=== PATIENT | female | born 1945 | race Caucasian/White ===

== ENCOUNTER 2019-03-11 10:40 | Inpatient (IN) | payer MEDICAID, MEDICARE ==
[~2019-03-11] VITALS: Ht 167.6 cm; Wt 81.2 kg
[2019-03-11] MEDS ORDERED: LORazepam 1 MG TAB PO ONE (11:00)
--- NOTE | 2019-03-11 11:08 | ER Report ---
History and Physical Time Seen By MD: 10:40 Hx. of Stated Complaint: fall around 0915 HPI/ROS CHIEF COMPLAINT: Reported fall HISTORY OF PRESENT ILLNESS: Patient is a 73-year-old female significant progressive and advanced dementia was found on the floor unwitnessed fall complaining of neck pain patient is a very poor historian cannot give any additional history the history was obtained by the staff. On arrival to emergency department she says her neck surgery 1 minute but then the next minute he doesn't she is currently in C-spine precautions. Patient is denying any pain anywhere else no obvious signs of trauma no additional findings noted REVIEW OF SYSTEMS: Couldn't appreciate due to baseline mental status Respiratory: No cough, no dyspnea. Cardiovascular: No chest pain, no palpitations. Gastrointestinal: No vomiting, no abdominal pain. Musculoskeletal: Neck pain Remainder of the 14 system rev: Yes Allergies: Coded Allergies: Penicillins (Verified Allergy, Unknown, 03/11/19) rofecoxib (Verified Allergy, Unknown, 03/11/19) Home Meds Reported Medications Nystatin 100,000 Unit/Gm Top Powder (NYSTATIN 100,000 UNIT/GM TOP POWDER) 15 Gm Powder, 15 GM TP PRN, TUBE 03/11/19 Lisinopril (LISINOPRIL) 20 Mg Tablet, 20 MG PO QDAY, TAB 03/11/19 Levothyroxine Sodium (LEVOTHYROXINE SODIUM) 50 Mcg Tablet, 25 MCG PO QDAY, TAB 03/11/19 Cyanocobalamin (Vitamin B-12) (CYANOCOBALAMIN INJECTION) 1,000 Mcg/1 Ml Vial, 1000 MCG IM 1x month, VIAL 03/11/19 Acetaminophen (TYLENOL EXTRA STRENGTH) 500 Mg Tablet, 500 MG PO DAILY, TAB 03/11/19 Reviewed Nurses Notes: Yes Old Medical Records Reviewed: Yes Constitutional Vital Sign - Last 24 Hours 03/11/19 10:55 Temp 97.6 Pulse 104 Resp 16 B/P (MAP) 167/91 Pulse Ox 98 O2 Delivery Room Air Physical Exam General Appearance: Patient at baseline altered mental alert to person only difficult to get any history[ ] Eyes: Pupils equal and round no injection. Respiratory: Chest is non tender, lungs are clear to auscultation. Cardiac: regular rate and rhythm [ ] Gastrointestinal: Abdomen is soft and non tender, no masses, bowel sounds normal. Musculoskeletal: Unremarkable Neck is in C-spine she's denying pain at time of examination Extremities have full range of motion and are non tender. Skin: No rashes or lesions. [ ] DIFFERENTIAL DIAGNOSIS: After history and physical exam differential diagnosis was considered for C-spine fracture C-spine contusion intracranial bleed mass fall on the elderly rhabdo Medical Decision Making Data Points Laboratory Hematology Test 03/11/19 11:40 Prothrombin Time 13.7 seconds (12.0-14.4) Prothromb Time International Ratio 1.04 Activated Partial Thromboplast Time 31 seconds (23-35) Chemistry Test 03/11/19 11:40 Prothrombin Time 13.7 seconds (12.0-14.4) Prothromb Time International Ratio 1.04 Activated Partial Thromboplast Time 31 seconds (23-35) Coagulation Test 03/11/19 11:40 Prothrombin Time 13.7 seconds Prothromb Time International Ratio 1.04 Activated Partial Thromboplast Time 31 seconds ED Course/Re-evaluation ED Course ED course 73-year-old female significant dementia at a mechanical unwitnessed fall CT scan does confirm a 2-3 mm subdural hematoma will be admitted to a general surgeon C-spine is negative coags negative no obvious anticoagulation issues patient be admitted Decision to Disposition Date: Mar 11, 2019 Decision to Disposition Time: 12:16 Depart Departure Latest Vital Signs Vital Signs Date Time Temp Pulse Resp B/P (MAP) Pulse Ox O2 Delivery O2 Flow Rate FiO2 03/11/19 10:55 97.6 104 16 167/91 98 Room Air Impression: Primary Impression: Subdural hematoma Condition: Condition Unchanged Disposition: Admitted from ER SOLIS RASHEED MD Mar 11, 2019 11:08
[2019-03-11] MEDS ORDERED: ACET500T68 PO (11:33)
[2019-03-11] MEDS ORDERED: NYST15PO4 TP (11:33)
[2019-03-11] MEDS ORDERED: CYAN1000 IM (11:33)
[2019-03-11] MEDS ORDERED: LEVO50TA86 PO (11:33)
[2019-03-11] MEDS ORDERED: LISI20TA29 PO (11:33)
--- NOTE | 2019-03-11 11:41 | RADIOLOGY IMAGING REPORT ---
FAC[place] [facility] [place]IENT NAME: Jojo Hooper : 1945 MR: [id number] V: [id number] EXAM DATE: ORDERING PHYSICIAN: SOLIS RASHEED TECHNOLOGIST: Location: [facility] - [place] Patient: Jojo Hooper : 1945 Visit/Account:[id number] Date of Sevice: 03/11/[address] scan without contrast COMPARISONS: None ADDITIONAL PERTINENT HISTORY: Fall TECHNIQUE: Multiple axial images were obtained from the skull base to the vertex without IV contrast . One of the following dose optimization techniques was utilized in the performance of this exam: Aut omated exposure control; adjustment of the mA and/or kV according to the patient's size; or use of an iterative reconstruction technique. Specific details can be referenced in the facility's radiology CT exam operational policy. FINDINGS: Midline shift: Negative Ventricles: Moderate enlargement of the lateral and third ventricles. Otherwise negative Brain parenchyma: Patchy hypoattenuation within the periventricular and subcortical white matter, no nspecific but likely representing small vessel ischemic change on a chronic basis. No intraparenchyma l hemorrhage or mass effect. Extra-axial spaces: Moderate to severe cerebral atrophy. Findings concerning for a thin subdural hem atoma measuring 2 to 3 mm overlying the midportion of the left cerebral hemisphere. No significant ma ss effect related to this thin subdural hematoma. Intracranial vasculature: Cavernous internal carotid artery calcifications. Otherwise negative Osseous structures: Negative Paranasal sinuses and mastoid air cells: Severe mucosal thickening involving the left maxillary sinu s. Surrounding soft tissues and orbits: Negative IMPRESSION: 1. Findings concerning for a 2 to 3 mm subdural hematoma overlying the midportion of the left cerebra l hemisphere. 2. Age related changes as described above. Results were discussed with SOLIS RASHEED at 03/11/2019 11:36 AM. Report Dictated By: Trent Miller MD at 03/11/2019 11:31 AM Report E-Signed By: Trent Miller MD at 03/11/2019 11:36 AM WSN:[email or web address]
--- NOTE | 2019-03-11 11:43 | RADIOLOGY IMAGING REPORT ---
FACILITY: [facility] - [place] PATIENT NAME: Jojo Hooper : 1945 MR: [id number] V: [id number] EXAM DATE: ORDERING PHYSICIAN: SOLIS RASHEED TECHNOLOGIST: Location: [facility] [place] Patient: Jojo Hooper : 1945 Visit/Account:[id number] Date of Sevice: 03/11/2019 CT VERTEBRA CERVICAL (NON CON) COMPARISONS: None. ADDITIONAL PERTINENT HISTORY: Fall TECHNIQUE: Multiple axial images were obtained from the skull base through the upper thoracic spine with coronal and sagittal reformatted images obtained without IV contrast. One of the following dose optimization techniques was utilized in the performance of this exam: Automated exposure control; adj ustment of the mA and/or kV according to the patient's size; or use of an iterative reconstruction t echnique. Specific details can be referenced in the facility's radiology CT exam operational policy. FINDINGS. Vertebral body heights and alignment: Negative. Vertebral bodies: Anteriorly directed osteophytes in the mid to lower cervical spine. No bony fractur es. Disc spaces: Disc space narrowing involving the lower cervical spine. Cranial cervical junction: Negative. Cervical thoracic junction: Negative. Surrounding soft tissues: Negative. Lung apices: Negative. IMPRESSION: 1. Spondylitic change involving the cervical spine as detailed above. 2. No acute bony abnormality. Report Dictated By: Trent Miller MD at 03/11/2019 11:36 AM Report E-Signed By: Trent Miller MD at 03/11/2019 11:39 AM WSN:[email or web address]
[2019-03-11 12:08] LABS: INR 1.04
--- NOTE | 2019-03-11 12:25 | Gen Surgery History & Physical ---
History of Present Illness Chief Complaint Fall; subdural hematoma History of Present Illness Ms. Hooper is a 73 year old female with baseline dementia who presents to [facility] following an unwitnessed fall at her care facility. The patient is a very poor historian and is largely non-verbal secondary to her baseline dementia. On arrival to the ED, the patient was neurologically in tact / at her neurological baseline and without evidence of hemodynamic or respiratory compromise. CT scanning of the head and neck were performed by the ED staff with findings of a 2 mm subdural hematoma along the left cortical convexity, no mass effect. CT of the cervical spine was without evidence of acute fracture. Patient is unable to articulate the circumstances of her fall or what she may have hit during the event. She is largely unable to articulate pain at this time. Patient is unable to provide medical historical information. History Home Meds Reported Medications Nystatin 100,000 Unit/Gm Top Powder (NYSTATIN 100,000 UNIT/GM TOP POWDER) 15 Gm Powder, 15 GM TP PRN, TUBE 03/11/19 Lisinopril (LISINOPRIL) 20 Mg Tablet, 20 MG PO QDAY, TAB 03/11/19 Levothyroxine Sodium (LEVOTHYROXINE SODIUM) 50 Mcg Tablet, 25 MCG PO QDAY, TAB 03/11/19 Cyanocobalamin (Vitamin B-12) (CYANOCOBALAMIN INJECTION) 1,000 Mcg/1 Ml Vial, 1000 MCG IM 1x month, VIAL 03/11/19 Acetaminophen (TYLENOL EXTRA STRENGTH) 500 Mg Tablet, 500 MG PO DAILY, TAB 03/11/19 Allergies: Coded Allergies: Penicillins (Verified Allergy, Unknown, 03/11/19) rofecoxib (Verified Allergy, Unknown, 03/11/19) Patient History: Patient reports no known family medical history. Review of Systems Other Unable to obtain secondary to baseline dementia. Exam General Appearance: Alert, Awake, No Acute Distress Neuro: No Gross deficits Eyes: PERRLA, Other (Injection of the right sclera) ENT: Moist Mucous Membranes, Oropharynx Clear Neck: No Masses, Other (Normal range of motion. No elicited pain on palpation of cervical spine.) Cardiovascular: Normal Rhythm & Peripheral Pulses, Regular Rate and Rhythm, No Edema Respiratory: No Respiratory Distress Chest: Other (CTAB, no W/R/R) GI: Abd Soft and Non-Tender Musculoskeletal: Other (No gross deformities. Normal range of motion. No elicited pain on passive ROM or palpation of joints / extremities.) Extremities: Soft and Non Tender, Warm, Perfused Integumentary: Generalized Fragile Skin Psych: Other (Patient is largely non-verbal. Intermittently responds to direct questioning. Appears somewhat anxious.) Medical Decision Making Data Points Result Diagram: 03/11/19 1140 EKG / Imaging Monitor Interpretation: Normal Sinus Rhythm Pre-Admit Course Medical Record Review: Yes Assessment and Plan Problems: (1) Subdural hematoma Onset Date: ~ 03/11/2019 Status: Acute Assessment & Plan: Left-sided subdural hematoma - 2-[address] - patient at baseline neurological condition, without focal deficits - admit for close observation - Q2 neuro exams - repeat CT head in 6 hours - PT/OT evaluation - Maintain SBP <140 - Maintain platelet count >100,000 - Maintain SaO2 >95% - PRN pain control (2) Hypertension Status: Chronic Assessment & Plan: Essential hypertension - resume home medication (3) Hypothyroidism Status: Chronic Assessment & Plan: Hypothyroidism - resume home medication Time Spent: > 30 min Venous Thromboembolism VTE Risk Physician Assess for VTE Risk: Yes Patient's VTE Risk: Low VTE Diagnostic Test 2 Days Prior to Admit: No Antithrombotics Is Pt On Any Antithrombotics?: No Prophylaxis Tx Contraindicated Pharmacological Contraindicati: Active Bleeding (New subdural hematoma) BIPIN MANZO MD Mar 11, 2019 12:25
[2019-03-11] MEDS ORDERED: HALOPERIDOL LACT 5 MG/ML VIAL IM PRN (12:50)
[2019-03-11] MEDS ORDERED: APAP/HYDROCODONE 325/5 TAB PO PRN (12:50)
[2019-03-11] MEDS ORDERED: NALOXONE HCL 0.4 MG/ML VIAL IVP PRN (12:50)
[2019-03-11] MEDS ORDERED: MORPHINE 2 MG/ML SYR IVP PRN (12:50)
[2019-03-11] MEDS ORDERED: ONDANSETRON 4 MG/2 ML VIAL IVP PRN (12:50)
[2019-03-11] MEDS ORDERED: ACETAMINOPHEN 325 MG TAB PO PRN (12:50)
[2019-03-11] MEDS ORDERED: FLUSH 10 ML SYR IVP PRN (12:50)
[2019-03-11] MEDS ORDERED: LABETALOL HCL 100 MG/20ML VIAL IVP PRN (12:50)
[2019-03-11] MEDS ORDERED: CYANOCOBALAMIN IM SCH (13:10)
[2019-03-11 13:35] LABS: INR 1.04
[2019-03-11 13:40] VITALS: BP 112/78
--- NOTE | 2019-03-11 14:35 | RADIOLOGY IMAGING REPORT ---
[place] [facility] [place] NAME: Jojo Hooper : 1945 MR: [id number] V: [id number] EXAM DATE: ORDERING PHYSICIAN: BIPIN MANZO TECHNOLOGIST: Location: [facility] - [place] Patient: Jojo Hooper : 1945 Visit/Account:[id number] Date of Sevice: 03/11/2019 Exam type: CHEST SINGLE AP History: Eval for rib fractures s/p GLF Comparison: None. Findings: There appears to be a fracture to the lateral aspect of the left third rib and possibly the left four th rib as well there is no evidence of pleural effusion pulmonary consolidation or pneumothorax. Car diac silhouette is normal in size. There is moderate ectasia the thoracic aorta IMPRESSION: 1. Fracture through the lateral aspect of the left third and possibly fourth ribs with no evidence o f underlying pulmonary consolidation pleural effusion or pneumothorax Report Dictated By: Mary Beth Howard MD at 03/11/2019 2:26 PM Report E-Signed By: Mary Beth Howard MD at 03/11/2019 2:30 PM WSN:[email or web address]
[2019-03-11] MEDS: NS(*) 0.9% 1000 ML BAG 1,000 ML IV SCH (14:53)
[2019-03-11 16:29] VITALS: BP 118/82
[2019-03-11] MEDS: NYSTATIN 100,000 U/GM PWD 15GM TP PRN (16:34)
--- NOTE | 2019-03-11 18:35 | EKG ---
[place]AC[place] [facility] [place]IENT NAME: ELBA SOSA : [id number] MR: [id number] V: [id number] EXAM DATE: ORDERING PHYSICIAN: BIPIN MANZO TECHNOLOGIST: Test Reason : Blood Pressure : / mmHG Vent. Rate : 093 BPM Atrial Rate : 093 BPM P-R Int : 164 ms QRS Dur : 074 ms QT Int : 366 ms P-R-T Axes : 060 050 039 degrees QTc Int : 455 ms Normal sinus rhythm Nonspecific ST and T wave abnormality Abnormal ECG No previous ECGs available Confirmed by MIKHAIL TOMLIN ([id number]) on 03/12/2019 6:42:51 AM Referred By: Confirmed By:MIKHAIL TOMLIN
[2019-03-11 18:49] VITALS: BP 175/102
--- NOTE | 2019-03-11 19:11 | General Surgery Progress Note ---
Subjective Progress Notes Subjective No significant change in neurological status. Patient continues to deny pain; however, her severe dementia limits ability to effectively communicate. Physical Exam Vital Signs Date Time Temp Pulse Resp B/P (MAP) Pulse Ox O2 Delivery O2 Flow Rate FiO2 03/11/19 18:49 97.5 91 20 175/102 (126) 94 Room Air General Appearance: Alert, Awake Neuro: No Gross deficits Eyes: PERRLA ENT: Moist Mucous Membranes, Oropharynx Clear Neck: No Masses Cardiovascular: Normal Rhythm & Peripheral Pulses Respiratory: No Respiratory Distress, Clear to Auscultation Chest: No Masses GI: Soft and Non-Tender Extremities: Soft and Non Tender, Warm, Perfused Psych: Other (Largely non-verbal, unable to fully assess. Intermittently agitated and anxious.) Result Diagram: 03/11/19 1140 Imaging CXR - obtained following admit - demonstrates left third rib and possibly fourth rib fractures - no evidence of PTX or DRU Monitor Interpretation: Normal Sinus Rhythm Assessment and Plan Problems: (1) Subdural hematoma Onset Date: ~ 03/11/2019 Status: Acute Assessment & Plan: Left-sided subdural hematoma - 2-[address] - patient at baseline neurological condition, without focal deficits - admit for close observation - Q2 neuro exams - repeat CT head in 6 hours - PT/OT evaluation - Maintain SBP <140 - Maintain platelet count >100,000 - Maintain SaO2 >95% - PRN pain control (2) Hypertension Status: Chronic Assessment & Plan: Essential hypertension - resume home medication (3) Hypothyroidism Status: Chronic Assessment & Plan: Hypothyroidism - resume home medication (4) Rib fractures Status: Acute Assessment & Plan: Left third and fourth rib fractures - patient unable to perform FVC - perform pulmonary toilet as able, expect this to be limited given patient's cognitive deficits - CXR AP and Lateral in the AM - supplemental oxygen as needed - PRN pain control Exam Sepsis Risk: No Definite Risk Problem Qualifiers (1) Rib fractures: Encounter type: initial encounter Rib fracture type: multiple ribs Fracture type: closed Laterality: left Qualified Codes: S22.42XA - Multiple fractures of ribs, left side, initial encounter for closed fracture BIPIN MANZO MD Mar 11, 2019 19:11
[2019-03-11] MEDS: DOCUSATE SODIUM 100 MG CAP PO SCH (21:00)
--- NOTE | 2019-03-11 21:22 | NUR ---
patient is NPO, po colace held
--- NOTE | 2019-03-11 21:30 | RADIOLOGY IMAGING REPORT ---
[place] [facility] [place] Jojo Hooper : 1945 MR: [id number] V: [id number] EXAM DATE: ORDERING PHYSICIAN: BIPIN MANZO TECHNOLOGIST: Location: Patient: Jojo Hooper : 1945 Visit/Account:[id number] Date of Sevice: 03/11/2019 CT BRAIN NO CONTRAST HISTORY: Follow-up subdural hematoma. COMPARISON: Earlier same day at 11:14 AM. TECHNIQUE: Axial images were obtained from the skull base to the vertex without contrast. Sagittal an d coronal reformats were performed. One of the following dose optimization techniques was utilized in the performance of this exam: Autom ated exposure control; adjustment of the mA and/or kV according to the patient's size; or use of an i terative reconstruction technique. Specific details can be referenced in the facility's radiology CT exam operational policy. CONTRAST: None. FINDINGS: BRAIN: Tiny left subdural hematoma has decreased in size, now measuring 1-2 mm in thickness (coronal image 49), previously 2-3 mm in thickness. No new hemorrhage. There are nonspecific periventricular, subcortical, and deep white matter low attenuation foci, mild in severity. There is mild to moderate calcification of the left vertebral artery and of the internal carotid arteries. There is mild calcif ication of the right vertebral artery. SULCI, VENTRICLES, AND CISTERNS: Sulci are prominent, compatible with mild to moderate atrophy, patrick l for age. There is compensatory dilation of the ventricles. The basilar cisterns are patent. OSSEOUS STRUCTURES: There is hyperostosis frontalis interna. 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 No fracture. There are scattered hemangiomas. PARANASAL SINUSES AND MASTOIDS: There is an air-fluid level within the left maxillary sinus, compatib le with active sinus disease. There is leftward nasal septal bowing. Mastoids are clear. ORBITS AND SOFT TISSUES: There is a small contusion of the left cheek (axial image 18 series 2). Ther e is a large amount of cerumen within the right external auditory canal, and there is a small amount in the left external auditory canal. IMPRESSION: 1. The tiny left subdural hematoma has slightly decreased in size. No new hemorrhage. 2. Small contusion of the left cheek, unchanged. Report Dictated By: Nicole Greco at 03/11/2019 9:15 PM Report E-Signed By: Nicole Greco at 03/11/2019 9:26 PM WSN:[id number]
[2019-03-11 23:04] VITALS: BP 191/104
[2019-03-12] VITALS (10 sets, daily range): BP systolic 117–175; BP diastolic 72–111
[2019-03-12] MEDS: NS(*) 0.9% 1000 ML BAG 1,000 ML IV SCH ×2 (05:27→15:30)
[2019-03-12 07:34] LABS: PLATELET COUNT, AUTOMATED 218 K/uL (150-450)
[2019-03-12 07:40] LABS: INR 1.01
--- NOTE | 2019-03-12 08:03 | RADIOLOGY IMAGING REPORT ---
FACILITY: [facility] - [place] PATIENT NAME: Jojo Hooper : 1945 MR: [id number] V: [id number] EXAM DATE: ORDERING PHYSICIAN: BIPIN MANZO TECHNOLOGIST: Location: [facility] Patient: Jojo Hooper : 1945 Visit/Account:[id number] Date of Sevice: 03/12/2019 CHEST SINGLE AP INDICATION: rib fracture COMPARISON: 03/11/2019 FINDINGS: Heart size within normal limits. There is no focal infiltrate or lobar consolidation. There is no pneumothorax or pleural effusion. Rib fractures seen on yesterday's examination are not visualized on today's study. IMPRESSION: 1. Rib fractures described on yesterday's examination are not seen on today's chest x-ray. There is n o evidence of effusion or pneumothorax. Report Dictated By: Robbi Inafnte at 03/12/2019 7:57 AM Report E-Signed By: Robbi Infante at 03/12/2019 8:00 AM WSN:[email or web address]
[2019-03-12] MEDS: LISINOPRIL 20 MG TAB PO SCH (08:24)
[2019-03-12] MEDS: LEVOTHYROXINE SOD 0.025 MG TAB PO SCH (08:24)
[2019-03-12] MEDS: DOCUSATE SODIUM 100 MG CAP PO SCH ×2 (08:24→20:29)
--- NOTE | 2019-03-12 08:41 | General Surgery Progress Note ---
Subjective Progress Notes Subjective Patient more clear and interactive this AM. Patient denies headache, blurred or double vision. Reports some pain in the left posterior chest with deep breathing. Denies shortness of breath or new cough. Physical Exam Vital Signs Date Time Temp Pulse Resp B/P (MAP) Pulse Ox O2 Delivery O2 Flow Rate FiO2 03/12/19 08:19 93 03/12/19 07:54 Room Air 03/12/19 07:54 99.1 84 20 139/81 (100) 03/12/19 03:30 2.0 Intake and Output 03/12/19 07:00 Intake Total 957 ml Balance 957 ml Intake IV Total 957 ml # Voids 3 General Appearance: Alert, Awake Neuro: No Gross deficits Eyes: PERRLA ENT: Moist Mucous Membranes Cardiovascular: Normal Rhythm & Peripheral Pulses, Regular Rate and Rhythm Respiratory: No Respiratory Distress, Clear to Auscultation, Other (Left chest tender to palpation) Chest: No Masses GI: Soft and Non-Tender : Normal Musculoskeletal: No Weakness/Pain Extremities: Soft and Non Tender, Warm, Pulses Integumentary: Skin Intact without Lesion / Mass Result Diagram: 03/12/19 0727 03/12/19 0520 Monitor Interpretation: Normal Sinus Rhythm Assessment and Plan Problems: (1) Subdural hematoma Onset Date: ~ 03/11/2019 Status: Acute Assessment & Plan: Left-sided subdural hematoma - 2-[address] - patient at baseline neurological condition, without focal deficits - admit for close observation - Q2 neuro exams - repeat CT head in 6 hours - PT/OT evaluation - Maintain SBP <140 - Maintain platelet count >100,000 - Maintain SaO2 >95% - PRN pain control 03/12: Subdural hematoma - repeat CT head with evidence of improvement in SDH - no indication for further CTs unless e/o neuro changes - can decrease neuro check frequency to Q4 - PT/OT evaluation - Maintain SBP <140 - Maintain platelet count >100,000 - Maintain SaO2 >95% - PRN pain control (2) Hypertension Status: Chronic Assessment & Plan: Essential hypertension - continue home medication - PRN labetalol for SBP >140 (3) Hypothyroidism Status: Chronic Assessment & Plan: Hypothyroidism - continue home medication (4) Rib fractures Status: Acute Assessment & Plan: Left third and fourth rib fractures - patient unable to perform FVC - perform pulmonary toilet as able, expect this to be limited given patient's cognitive deficits - CXR AP and Lateral in the AM - supplemental oxygen as needed - PRN pain control 03/12: Left third and fourth rib fractures - patient unable to perform FVC - perform pulmonary toilet as able - daily CXR - supplemental oxygen as needed - PRN pain control Time Spent: > 30 min Exam Sepsis Risk: No Definite Risk Problem Qualifiers (1) Rib fractures: Encounter type: initial encounter Rib fracture type: multiple ribs Fracture type: closed Laterality: left Qualified Codes: S22.42XA - Multiple fractur es of ribs, left side, initial encounter for closed fracture BIPIN MANZO MD Mar 12, 2019 08:41
[2019-03-12] MEDS ORDERED: LEVO25TA57 PO (09:29)
[2019-03-12] MEDS ORDERED: ASPI-1471 PO (09:31)
--- NOTE | 2019-03-12 12:24 | NUR ---
Physical Therapy Impression PT eval complete. Pt demonstrates safety and independence with functional mobility and is safe to discharge to [facility] when medically appropriate. Physical Therapy Goals Patient's Goals
[2019-03-13 03:18] VITALS: BP 108/56
[2019-03-13] MEDS: LEVOTHYROXINE SOD 0.025 MG TAB PO SCH (06:00)
[2019-03-13 07:58] VITALS: BP 122/80
[2019-03-13] MEDS: DOCUSATE SODIUM 100 MG CAP PO SCH (09:00)
[2019-03-13] MEDS ORDERED: TRAM-420 PO (09:18)
[2019-03-13] MEDS ORDERED: ASPI-1471 PO (09:18)
--- NOTE | 2019-03-13 09:23 | Short(Outpt) Discharge Summary ---
Discharge Summary Reason for Hosp/Final Diag: (1) Subdural hematoma Onset Date: ~ 03/11/2019 Status: Acute Hospital Course & Plan: Left-sided subdural hematoma - 2-[address] - patient at baseline neurological condition, without focal deficits - admit for close observation - Q2 neuro exams - repeat CT head in 6 hours - PT/OT evaluation - Maintain SBP <140 - Maintain platelet count >100,000 - Maintain SaO2 >95% - PRN pain control 03/12: Subdural hematoma - repeat CT head with evidence of improvement in SDH - no indication for further CTs unless e/o neuro changes - can decrease neuro check frequency to Q4 - PT/OT evaluation - Maintain SBP <140 - Maintain platelet count >100,000 - Maintain SaO2 >95% - PRN pain control 03/13: Subdural hematoma - stable on repeat CT head - no indication for further CTs unless e/o neuro changes - hold aspirin or any form of anticoagulation until 03/19/19 - should undergo repeat CT head 1 week after resuming aspirin (about 03/26/19) - follow up with PCP - PT/OT evaluation completed, patient safe for DC - Appropriate for DC back to care facility (2) Hypertension Status: Chronic Hospital Course & Plan: Essential hypertension - continue home lisinopril (3) Hypothyroidism Status: Chronic Hospital Course & Plan: Hypothyroidism - continue home levothyroxine (4) Rib fractures Status: Acute Hospital Course & Plan: Left third and fourth rib fractures - patient unable to perform FVC - perform pulmonary toilet as able, expect this to be limited given patient's cognitive deficits - CXR AP and Lateral in the AM - supplemental oxygen as needed - PRN pain control 03/12: Left third and fourth rib fractures - patient unable to perform FVC - perform pulmonary toilet as able - daily CXR - supplemental oxygen as needed - PRN pain control 03/13 Left third and fourth rib fractures - patient unable to perform FVC - pulmonary toilet as able - CXR without e/o consolidations - supplemental oxygen has not been needed - PRN pain control after discharge - should undergo repeat CXR about 1 week after discharge - OK to DC back to [facility] Departure Discharge to: [facility] ([facility]) Discharge Instructions Home Meds Active Scripts Tramadol Hcl (TRAMADOL HCL) 50 Mg Tablet, 50-100 MG PO Q4-6H for PAIN for 7 Days, #28 TAB 0 Refills Prov:BIPIN MANZO MD 03/13/19 Aspirin (ASPIR 81) 81 Mg Tablet.dr, 81 MG PO QDAY for 90 Days, #120 TAB 9 Refills May resume on 03/19/19. Prov:BIPIN MANZO MD 03/13/19 Reported Medications Levothyroxine Sodium (SYNTHROID) 25 Mcg Tablet, 25 MCG PO QDAY 03/12/19 Lisinopril (LISINOPRIL) 20 Mg Tablet, 20 MG PO QDAY, TAB 03/11/19 Acetaminophen (TYLENOL EXTRA STRENGTH) 500 Mg Tablet, 500 MG PO BID, TAB 03/11/19 Discontinued Reported Medications Nystatin 100,000 Unit/Gm Top Powder (NYSTATIN 100,000 UNIT/GM TOP POWDER) 15 Gm Powder, 15 GM TP PRN, TUBE 03/11/19 Levothyroxine Sodium (LEVOTHYROXINE SODIUM) 50 Mcg Tablet, 25 MCG PO QDAY, TAB 03/11/19 Cyanocobalamin (Vitamin B-12) (CYANOCOBALAMIN INJECTION) 1,000 Mcg/1 Ml Vial, 1000 MCG IM 1x month, VIAL 03/11/19 Diet: Regular Activity: As Tolerated Special Instructions: Hold aspirin or any other form of anticoagulation until 03/19/19. Encourage ambulation and pulmonary toilet as able. Problem Qualifiers (1) Hypertension: Hypertension type: essential hypertension Qualified Codes: I10 - Essential (primary) hypertension (2) Hypothyroidism: Hypothyroidism type: acquired Qualified Codes: E03.9 - Hypothyroidism, unspecified (3) Rib fractures: Encounter type: initial encounter Rib fracture type: multiple ribs Fracture type: closed Laterality: left Qualified Codes: S22.42XA - Multiple fractures of ribs, left side, initial encounter for closed fracture BIPIN MANZO MD Mar 13, 2019 09:23
--- NOTE | 2019-03-13 09:37 | General Surgery Progress Note ---
Subjective Progress Notes Subjective Remains neurologically normal. Did well with PT eval yesterday. Tolerating regular diet without issue. Reports pain in left chest is unchanged. Denies any difficulty with deep breathing. Denies any shortness of breath. Patient Complains of: Musculoskeletal: Pain (Pain in left chest) Physical Exam Vital Signs Date Time Temp Pulse Resp B/P (MAP) Pulse Ox O2 Delivery O2 Flow Rate FiO2 03/13/19 07:58 97.4 77 17 122/80 (94) 87 Room Air 03/13/19 03:18 2.0 Intake and Output 03/13/19 07:00 Intake Total 318 ml Balance 318 ml Intake Oral 318 ml # Voids 8 General Appearance: Alert, Awake Neuro: No Gross deficits Eyes: PERRLA ENT: Moist Mucous Membranes, Oropharynx Clear Cardiovascular: Normal Rhythm & Peripheral Pulses, Regular Rate and Rhythm Respiratory: No Respiratory Distress, Clear to Auscultation Chest: Other (Tender to palpation over left chest corresponding to area of known fractures) GI: Soft and Non-Tender : Normal Extremities: Soft and Non Tender, Warm, Perfused Integumentary: Skin Intact without Lesion / Mass Psych: Other (Remains confused, intermittently responds to direct questioning) Result Diagram: 03/12/19 0727 03/12/19 0520 Monitor Interpretation: Normal Sinus Rhythm Assessment and Plan Problems: (1) Subdural hematoma Onset Date: ~ 03/11/2019 Status: Acute Assessment & Plan: Left-sided subdural hematoma - 2-[address] - patient at baseline neurological condition, without focal deficits - admit for close observation - Q2 neuro exams - repeat CT head in 6 hours - PT/OT evaluation - Maintain SBP <140 - Maintain platelet count >100,000 - Maintain SaO2 >95% - PRN pain control 03/12: Subdural hematoma - repeat CT head with evidence of improvement in SDH - no indication for further CTs unless e/o neuro changes - can decrease neuro check frequency to Q4 - PT/OT evaluation - Maintain SBP <140 - Maintain platelet count >100,000 - Maintain SaO2 >95% - PRN pain control 03/13 Subdural hematoma - stable on repeat CT head - no indication for further CTs unless e/o neuro changes - neuro checks Q4 - PT/OT evaluation completed, patient safe for DC - Maintain SBP <140 - Maintain platelet count >100,000 - Maintain SaO2 >95% - PRN pain control - Appropriate for DC back to care facility (2) Hypertension Status: Chronic Assessment & Plan: Essential hypertension - continue home medication - PRN labetalol for SBP >140 (3) Hypothyroidism Status: Chronic Assessment & Plan: Hypothyroidism - continue home medication (4) Rib fractures Status: Acute Assessment & Plan: Left third and fourth rib fractures - patient unable to perform FVC - perform pulmonary toilet as able, expect this to be limited given patient's cognitive deficits - CXR AP and Lateral in the AM - supplemental oxygen as needed - PRN pain control 03/12: Left third and fourth rib fractures - patient unable to perform FVC - perform pulmonary toilet as able - daily CXR - supplemental oxygen as needed - PRN pain control 03/13 Left third and fourth rib fractures - patient unable to perform FVC - pulmonary toilet as able - CXR without e/o consolidations - supplemental oxygen as needed - PRN pain control Time Spent: > 30 min Exam Sepsis Risk: No Definite Risk Problem Qualifiers (1) Hypertension: Hypertension type: essential hypertension Qualified Codes: I10 - Essential (primary) hypertension (2) Hypothyroidism: Hypothyroidism type: acquired Qualified Codes: E03.9 - Hypothyroidism, unspecified (3) Rib fractures: Encounter type: initial encounter Rib fracture type: multiple ribs Fracture type: closed Laterality: left Qualified Codes: S22.42XA - Multiple fractures of ribs, left side, initial encounter for closed fracture BIPIN MANZO MD Mar 13, 2019 09:12
[2019-03-13] MEDS: LISINOPRIL 20 MG TAB PO SCH (09:39)
[2019-03-13] MEDS: NYSTATIN 100,000 U/GM PWD 15GM TP PRN (09:39)
== END 2019-03-13 13:50 | DRG 83 ==
LOC: ER 10:45 → MED 12:38
PROVIDERS: ADMIT Surgery Surgical Critical Care; ATTEND Surgery Surgical Critical Care
DX: S06.5X9A Traumatic subdural hemorrhage with loss of consciousness of unspecified duration, initial encounter (principal); S22.42XA Multiple fractures of ribs, left side, initial encounter for closed fracture; I10 Essential (primary) hypertension; Z88.0 Allergy status to penicillin; Z88.8 Allergy status to other drugs, medicaments and biological substances; F03.90 Unspecified dementia, unspecified severity, without behavioral disturbance, psychotic disturbance, mood disturbance, and anxiety; E03.9 Hypothyroidism, unspecified; W18.30XA Fall on same level, unspecified, initial encounter
CPT/HCPCS: 36415; 70450; 71045; 72125; 82040; 82247; 82310; 82374; 82435; 82553; 82565; 82947; 84075; 84132; 84155; 84295; 84450; 84460; 84520; 85025; 85610; 85730; 93005; 96372; 96374; 97161; 99285; J1630; J7030

== ENCOUNTER → 2019-03-11 | Outpatient (CLI) | payer MEDICARE ==
[~2019-03-11] MED LIST: ACET500T68 PO; ASPI-1471 PO; CYAN1000 IM; LEVO25TA57 PO; LEVO50TA86 PO; LISI20TA29 PO; NYST15PO4 TP; TRAM-420 PO
== END ==
LOC: AMB 10:20
PROVIDERS: ATTEND Nurse Practitioner
DX: M54.2 Cervicalgia (principal); R41.0 Disorientation, unspecified; W19.XXXA Unspecified fall, initial encounter
CPT/HCPCS: A0425; A0429

== ENCOUNTER → 2019-03-23 | Outpatient (CLI) | payer MEDICARE ==
--- NOTE | 2019-03-23 11:35 | RADIOLOGY IMAGING REPORT ---
FACILITY: [facility] [place] PATIENT NAME: Jojo Hooper : 1945 MR: [id number] V: [id number] EXAM DATE: ORDERING PHYSICIAN: LEIGH ANN SHERWOOD TECHNOLOGIST: Location: [facility] [place] Patient: Jojo Hooper : 1945 Visit/Account:[id number] Date of Sevice: 03/23/2019 RIBS LEFT HISTORY: Chest pain. Dementia. Evaluate chest and left ribs. COMPARISON: Chest x-ray March. FINDINGS: Cardiomediastinal contours: The heart size is normal. Lungs and pleura: There is no finding of a pleural effusion or pneumothorax. Bones/soft tissues: Osteopenia without fracture. In particular there is no left rib fracture. IMPRESSION: 1. No active disease in the chest. 2. No findings of a rib fracture on the left side. Report Dictated By: Eliud Van MD at 03/23/2019 11:28 AM Report E-Signed By: Eliud Van MD at 03/23/2019 11:29 AM WSN:[id number]
== END ==
LOC: RAD 10:24
PROVIDERS: ATTEND Family Medicine
DX: R07.81 Pleurodynia (principal)
CPT/HCPCS: 71100

== ENCOUNTER 2019-03-29 00:43 | Emergency (ER) | payer MEDICARE, MEDICAID ==
--- NOTE | 2019-03-29 00:46 | ER Report ---
History and Physical Time Seen By MD: 00:44 HPI/ROS CHIEF COMPLAINT: Fall HISTORY OF PRESENT ILLNESS: This is a 73 female. She has dementia. Not able to get much in the way of history with her dementia. History of fall earlier in the month with a subdural hematoma with subsequent hospitalization. Patient is mostly nonverbal, but does answer yes and no on occasion, hard to tell if this is consistent. REVIEW OF SYSTEMS: Unable to obtain Allergies: Coded Allergies: Penicillins (Verified Allergy, Unknown, 03/11/19) rofecoxib (Verified Allergy, Unknown, 03/11/19) Home Meds Active Scripts Tramadol Hcl (TRAMADOL HCL) 50 Mg Tablet, 50-100 MG PO Q4-6H for PAIN for 7 Days, #28 TAB 0 Refills Prov:BIPIN MANZO MD 03/13/19 Aspirin (ASPIR 81) 81 Mg Tablet.dr, 81 MG PO QDAY for 90 Days, #120 TAB 9 Refills May resume on 03/19/19. Prov:BIPIN MANZO MD 03/13/19 Reported Medications Levothyroxine Sodium (SYNTHROID) 25 Mcg Tablet, 25 MCG PO QDAY 03/12/19 Lisinopril (LISINOPRIL) 20 Mg Tablet, 20 MG PO QDAY, TAB 03/11/19 Acetaminophen (TYLENOL EXTRA STRENGTH) 500 Mg Tablet, 500 MG PO BID, TAB 03/11/19 Reviewed Nurses Notes: Yes Constitutional Vital Sign - Last 24 Hours 03/29/19 00:46 Temp 97.9 Pulse 74 Resp 14 B/P (MAP) 164/93 Pulse Ox 91 O2 Delivery Room Air Physical Exam General Appearance: The patient is alert. No acute distress. Eyes: Pupils are equal, round. Reactive to light. No pallor, injection or icterus. Extraocular movements are intact. No nystagmus. ENT: Mucous membranes are moist. Normal oral mucosa. Posterior oropharynx is normal. Neck: Supple and no apparent tenderness with palpation Respiratory: Lungs are clear to auscultation. Cardiovascular: Regular rate and rhythm. Normal peripheral perfusion. Gastrointestinal: Abdomen is soft, no apparent tenderness. Nondistended. Normal active bowel sounds. Neurological: Alert, unable to tell orientation but appears oriented to self only. Unable to do full neuro exam, I exam as noted above. Is moving all extremities without deficits. Skin: Warm and dry. Scalp hematoma on superior occipital scalp with abrasion but no laceration. Musculoskeletal: Extremities appear nontender with palpation throughout, no chest wall pain with palpation tonight. No tenderness in palpation of the cervical, thoracic and lumbar spine. DIFFERENTIAL DIAGNOSIS: After history and physical exam, differential diagnosis was considered for patient with a fall, however with her dementia, nonverbal, CT scans of the head and neck ordered Medical Decision Making EKG/Imaging Imaging CT Head without contrast and CT Cervical spine: Indication: fall, head injury Comparison: 03/11/2019 Technique: CT head: Axial CT images were obtained through the brain from the skull base to the vertex without administration of IV contrast. Reformatted coronal and sagittal images were also obtained. Technique: CT cervical spine: Axial CT imaging of the cervical spine was performed. 2-D sagittal and coronal CT reformats were also obtained. One of the following dose optimization techniques was utilized in the performance of this exam: Automated exposure control; adjustment of the mA and/or kV according to the patient's size; or use of an iterative reconstruction technique. Specific details can be referenced in the facility's radiology CT exam operational policy. FINDINGS: CT head: Midline posterior scalp contusion. No fracture. No evidence of mass, mass effect, or midline shift. No acute intracranial hemorrhage or acute territorial infarction. Moderate volume loss and multifocal white matter hypoattenuation likely related to chronic small vessel ischemic disease, not significantly changed. Globes and orbits are normal. Small amount of fluid in the left maxillary sinus. The visualized paranasal sinuses and mastoid air spaces are otherwise clear. CT cervical spine: No acute abnormality of cervical vertebral body height and alignment. No cervical spine fracture. Congenital incomplete fusion of the posterior arch of C1. There is no prevertebral soft tissue thickening. Mild multilevel spondylosis. Remaining visualized cervical soft tissues are nonacute. 8 mm hypoattenuating nodule in the anterior aspect of the right thyroid lobe. The airway is patent. The lung apices are clear. IMPRESSION: 1. No acute intracranial abnormality. 2. No acute osseous abnormality of the cervical spine. Report Dictated By: Pedro Norton MD at 03/29/2019 1:22 AM ED Course/Re-evaluation ED Course CT scans obtained and were negative. Scalp wound cleaned, abrasion and hematoma but no laceration and no repair needed Decision to Disposition Date: Mar 29, 2019 Decision to Disposition Time: 01:43 Depart Departure Latest Vital Signs Vital Signs Date Time Temp Pulse Resp B/P (MAP) Pulse Ox O2 Delivery O2 Flow Rate FiO2 03/29/19 00:46 97.9 74 14 164/93 91 Room Air Impression: Primary Impression: Fall Additional Impression: Scalp hematoma Condition: Improved Disposition: HOME OR SELF-CARE Patient Instructions: Scalp Contusion in Adults (ED) Additional Instructions: CT scan of the head and cervical spine were negative. Small hematoma with abrasion on the back of the scalp, no stitches or chris necessary. Problem Qualifiers Primary Impression: Fall Encounter type: initial encounter Qualified Codes: W19.XXXA - Unspecified fall, initial encounter Additional Impression: Scalp hematoma Encounter type: initial encounter Qualified Codes: S00.03XA - Contusion of scalp, initial encounter GUILLERMO LEARY MD Mar 29, 2019 00:46
--- NOTE | 2019-03-29 01:39 | RADIOLOGY IMAGING REPORT ---
FACILITY: [facility] PATIENT NAME: Staci Hooper : 1945 MR: [id number] V: [id number] EXAM DATE: ORDERING PHYSICIAN: GUILLERMO LEARY TECHNOLOGIST: Location: [facility] [place] Patient: Staci Hooper : 1945 Visit/Account:[id number] Date of Sevice: 03/29/2019 CT Head without contrast and CT Cervical spine: Indication: fall, head injury Comparison: 03/11/2019 Technique: CT head: Axial CT images were obtained through the brain from the skull base to the verte x without administration of IV contrast. Reformatted coronal and sagittal images were also obtained. Technique: CT cervical spine: Axial CT imaging of the cervical spine was performed. 2-D sagittal and coronal CT reformats were also obtained. One of the following dose optimization techniques was utilized in the performance of this exam: Autom ated exposure control; adjustment of the mA and/or kV according to the patient's size; or use of an i terative reconstruction technique. Specific details can be referenced in the facility's radiology C T exam operational policy. FINDINGS: CT head: Midline posterior scalp contusion. No fracture. No evidence of mass, mass effect, or midline shift. No acute intracranial hemorrhage or acute territorial infarction. Moderate volume loss and multifocal white matter hypoattenuation likely related to chronic small vess el ischemic disease, not significantly changed. Globes and orbits are normal. Small amount of fluid in the left maxillary sinus. The visualized paranasal sinuses and mastoid air spaces are otherwise clear. CT cervical spine: No acute abnormality of cervical vertebral body height and alignment. No cervical spine fracture. C ongenital incomplete fusion of the posterior arch of C1. There is no prevertebral soft tissue thicke doug. Mild multilevel spondylosis. Remaining visualized cervical soft tissues are nonacute. 8 mm hypoattenuating nodule in the anterior aspect of the right thyroid lobe. The airway is patent. The lung apices are clear. IMPRESSION: 1. No acute intracranial abnormality. 2. No acute osseous abnormality of the cervical spine. Report Dictated By: Pedro Norton MD at 03/29/2019 1:22 AM Report E-Signed By: Pedro Norton MD at 03/29/2019 1:33 AM [id number]
--- NOTE | 2019-03-29 01:40 | RADIOLOGY IMAGING REPORT ---
FACILITY: [facility] [place] PATIENT NAME: Staci Hooper : 1945 MR: [id number] V: [id number] EXAM DATE: ORDERING PHYSICIAN: GUILLERMO LEARY TECHNOLOGIST: Location: [facility] [place] Patient: Staci Hooper : 1945 Visit/Account:[id number] Date of Sevice: 03/29/2019 CT Head without contrast and CT Cervical spine: Indication: fall, head injury Comparison: 03/11/2019 Technique: CT head: Axial CT images were obtained through the brain from the skull base to the verte x without administration of IV contrast. Reformatted coronal and sagittal images were also obtained. Technique: CT cervical spine: Axial CT imaging of the cervical spine was performed. 2-D sagittal and coronal CT reformats were also obtained. One of the following dose optimization techniques was utilized in the performance of this exam: Autom ated exposure control; adjustment of the mA and/or kV according to the patient's size; or use of an i terative reconstruction technique. Specific details can be referenced in the facility's radiology C T exam operational policy. FINDINGS: CT head: Midline posterior scalp contusion. No fracture. No evidence of mass, mass effect, or midline shift. No acute intracranial hemorrhage or acute territorial infarction. Moderate volume loss and multifocal white matter hypoattenuation likely related to chronic small vess el ischemic disease, not significantly changed. Globes and orbits are normal. Small amount of fluid in the left maxillary sinus. The visualized paranasal sinuses and mastoid air spaces are otherwise clear. CT cervical spine: No acute abnormality of cervical vertebral body height and alignment. No cervical spine fracture. C ongenital incomplete fusion of the posterior arch of C1. There is no prevertebral soft tissue thicke doug. Mild multilevel spondylosis. Remaining visualized cervical soft tissues are nonacute. 8 mm hypoattenuating nodule in the anterior aspect of the right thyroid lobe. The airway is patent. The lung apices are clear. IMPRESSION: 1. No acute intracranial abnormality. 2. No acute osseous abnormality of the cervical spine. Report Dictated By: Pedro Norton MD at 03/29/2019 1:22 AM Report E-Signed By: Pedro Norton MD at 03/29/2019 1:33 AM [id number]
[2019-03-29 02:00] VITALS: BP 137/90
== END 2019-03-29 02:35 | disposition home or self-care (01) ==
LOC: ER 01:24
DX: S00.01XA Abrasion of scalp, initial encounter (principal); W19.XXXA Unspecified fall, initial encounter; Z91.81 History of falling; F03.90 Unspecified dementia, unspecified severity, without behavioral disturbance, psychotic disturbance, mood disturbance, and anxiety
CPT/HCPCS: 70450; 72125; 99284

== ENCOUNTER → 2019-03-29 | Outpatient (CLI) | payer MEDICARE, MEDICAID | LOC: AMB 02:29 | PROVIDERS: ATTEND Nurse Practitioner | DX: Z76.89 Persons encountering health services in other specified circumstances (principal) | CPT/HCPCS: A0425; A0428 ==

== ENCOUNTER → 2019-03-29 | Outpatient (CLI) | payer MEDICARE, MEDICAID | LOC: AMB 00:23 | PROVIDERS: ATTEND Nurse Practitioner | DX: S09.90XA Unspecified injury of head, initial encounter (principal); R51 Headache; R41.0 Disorientation, unspecified | CPT/HCPCS: A0425; A0429 ==

== ENCOUNTER 2019-03-31 13:23 | Emergency (ER) | payer MEDICARE, MEDICAID ==
[2019-03-31] MEDS ORDERED: NS(*) 0.9% 500 ML BAG 500 ML IV ONE (13:43)
--- NOTE | 2019-03-31 13:52 | ER Report ---
History and Physical Time Seen By MD: 13:32 Hx. of Stated Complaint: PER [facility], PT HAD A 3 MIN SEIZURE. EMS BG 113. PT CURRENTLY AT HER BASELINE HPI/ROS CHIEF COMPLAINT: Seizure HISTORY OF PRESENT ILLNESS: This is a 73-year-old female presents emergency department for a seizure. Patient is a resident of the [facility], she was seen and evaluated in the emergency department 20 days ago noted to have a subdural bleed with some rib fractures secondary to a fall. She was admitted to [facility], then discharged home 2 days after her fall, then returned to the emergency department 2 days ago status post fall, negative head CT, did have a hematoma, was discharged home. Today she had a "witnessed seizure that lasted approximately 3 minutes", the report was she the activity was just the arms, per EMS when they arrived she was not postictal, she was at baseline. Patient arrives at baseline, she is primarily nonverbal however I am able to get her to verbalize some words. She will shake her head yes or no in response to my questions, she will also follow commands appropriately. No apparent fevers at the [facility], no headaches or visual changes, no concerns of chest pain or shortness of breath, she does not appear to be in distress, no obvious signs of trauma. She does have an odor of urine. REVIEW OF SYSTEMS: Constitutional: No fever, no chills. Eyes: No discharge. ENT: No sore throat. Cardiovascular: No chest pain, no palpitations. Respiratory: No cough, no shortness of breath. Gastrointestinal: No abdominal pain, no vomiting. Genitourinary: No hematuria. Musculoskeletal: No back pain. Skin: No rashes. Neurological: As above. Allergies: Coded Allergies: Penicillins (Verified Allergy, Unknown, 03/11/19) rofecoxib (Verified Allergy, Unknown, 03/11/19) Home Meds Active Scripts Tramadol Hcl (TRAMADOL HCL) 50 Mg Tablet, 50-100 MG PO Q4-6H for PAIN for 7 Days, #28 TAB 0 Refills Prov:BIPIN MANZO MD 03/13/19 Aspirin (ASPIR 81) 81 Mg Tablet.dr, 81 MG PO QDAY for 90 Days, #120 TAB 9 Refills May resume on 03/19/19. Prov:BIPIN MANZO MD 03/13/19 Reported Medications Levothyroxine Sodium (SYNTHROID) 25 Mcg Tablet, 25 MCG PO QDAY 03/12/19 Lisinopril (LISINOPRIL) 20 Mg Tablet, 20 MG PO QDAY, TAB 03/11/19 Acetaminophen (TYLENOL EXTRA STRENGTH) 500 Mg Tablet, 500 MG PO BID, TAB 03/11/19 Past Medical/Surgical History Patient has a past medical and surgical history of hypothyroidism, dementia, Alzheimer's disease, seizures, hypertension, back pain, type II diabetes, rib fractures, subdural hematoma. Reviewed Nurses Notes: Yes Constitutional Vital Sign - Last 24 Hours 03/31/19 03/31/19 03/31/19 03/31/19 13:25 13:30 14:00 14:30 Temp 97.6 Pulse 76 81 75 61 Resp 12 12 12 12 B/P (MAP) 143/93 152/105 (121) 149/85 (106) 138/84 (102) Pulse Ox 96 94 94 94 O2 Delivery Room Air Room Air Room Air 03/31/19 03/31/19 15:36 15:47 Pulse 69 Resp 12 B/P (MAP) 121/72 (88) Pulse Ox 92 O2 Delivery Room Air O2 Flow Rate 2.0 Physical Exam General Appearance: The patient is alert, has no immediate need for airway protection and no signs of toxicity. Eyes: Pupils equal and round no pallor or injection. ENT, Mouth: Mucous membranes are moist. No hemotympanum. The canals are partially obstructed by cerumen however the TMs are visualized. Respiratory: There are no retractions, lungs are clear to auscultation. Cardiovascular: Regular rate and rhythm. No murmurs, clicks or rubs. Gastrointestinal: Abdomen is soft and non tender, no masses, bowel sounds normal. Neurological: At baseline. Moving all extremities. Following all commands. No focal neuro deficits. Skin: Warm and dry, no rashes. Musculoskeletal: Neck is supple non tender. Extremities are nontender, nonswollen and have full range of motion. DIFFERENTIAL DIAGNOSIS: After history and physical exam differential diagnosis was considered for a seizure including but not limited to electrolyte abnormality, alcohol withdrawal, medication noncompliance, head injury, and breakthrough seizure. Medical Decision Making Data Points Result Diagram: 03/31/19 1401 03/31/19 1401 Laboratory Hematology Test 03/31/19 14:01 03/31/19 14:25 Red Blood Count 4.44 M/uL (4.17-5.56) Mean Corpuscular Volume 87.8 fL (80.0-96.0) Mean Corpuscular Hemoglobin 29.6 pg (26.0-33.0) Mean Corpuscular Hemoglobin Concent 33.7 g/dL (32.0-36.0) Red Cell Distribution Width 15.1 % (11.5-14.5) Mean Platelet Volume 8.7 fL (7.2-11.1) Neutrophils (%) (Auto) 49.1 % (39.4-72.5) Lymphocytes (%) (Auto) 37.7 % (17.6-49.6) Monocytes (%) (Auto) 9.6 % (4.1-12.4) Eosinophils (%) (Auto) 2.6 % (0.4-6.7) Basophils (%) (Auto) 1.0 % (0.3-1.4) Nucleated RBC Relative Count (auto) 0.1 /100WBC Neutrophils # (Auto) 3.6 K/uL (2.0-7.4) Lymphocytes # (Auto) 2.8 K/uL (1.3-3.6) Monocytes # (Auto) 0.7 K/uL (0.3-1.0) Eosinophils # (Auto) 0.2 K/uL (0.0-0.5) Basophils # (Auto) 0.1 K/uL (0.0-0.1) Nucleated RBC Absolute Count (auto) 0.01 K/uL Prothrombin Time 13.3 seconds (12.0-14.4) Prothromb Time International Ratio 1.01 Activated Partial Thromboplast Time 32 seconds (23-35) Sodium Level 140 mmol/L (137-145) Potassium Level 4.3 mmol/L (3.5-5.0) Chloride Level 106 mmol/L (98-107) Carbon Dioxide Level 22 mmol/L (22-31) Blood Urea Nitrogen 33 mg/dl (7-18) Creatinine 1.00 mg/dl (0.52-1.04) Glomerular Filtration Rate Calc 54.2 Random Glucose 101 mg/dl (75-110) Calcium Level 9.8 mg/dl (8.4-10.2) Magnesium Level 2.3 mg/dl (1.7-2.2) Total Bilirubin 0.5 mg/dl (0.2-1.3) Aspartate Amino Transf (AST/SGOT) 23 U/L (0-35) Alanine Aminotransferase (ALT/SGPT) 32 U/L (0-56) Alkaline Phosphatase 72 U/L (0-126) Total Protein 7.0 g/dl (6.3-8.2) Albumin 4.2 g/dl (3.5-5.0) Urine Color Yellow Urine Clarity Clear Urine pH 5.0 pH (4.8-9.5) Urine Specific [place] 1.011 Urine Protein Negative mg/dL (NEGATIVE) Urine Glucose (UA) Negative mg/dL (NEGATIVE) Urine Ketones Negative mg/dL (NEGATIVE) Urine Blood Negative (NEGATIVE) Urine Nitrite Negative (NEGATIVE) Urine Bilirubin Negative (NEGATIVE) Urine Urobilinogen Negative mg/dL (0.2-1.9) Urine Leukocyte Esterase Negative (NEGATIVE) Urine RBC <1 /HPF (0-2/HPF) Urine WBC 1 /HPF (0-5/HPF) Urine Squamous Epithelial Cells Few /LPF (NONE-FEW) Urine Bacteria Negative /HPF (NONE-FEW) Urine Mucus None /HPF (NONE-FEW) Chemistry Test 03/31/19 14:01 03/31/19 14:25 White Blood Count 7.4 k/uL (4.5-11.0) Red Blood Count 4.44 M/uL (4.17-5.56) Hemoglobin 13.1 g/dL (12.0-16.0) Hematocrit 39.0 % (34.0-47.0) Mean Corpuscular Volume 87.8 fL (80.0-96.0) Mean Corpuscular Hemoglobin 29.6 pg (26.0-33.0) Mean Corpuscular Hemoglobin Concent 33.7 g/dL (32.0-36.0) Red Cell Distribution Width 15.1 % (11.5-14.5) Platelet Count 246 K/uL (150-450) Mean Platelet Volume 8.7 fL (7.2-11.1) Neutrophils (%) (Auto) 49.1 % (39.4-72.5) Lymphocytes (%) (Auto) 37.7 % (17.6-49.6) Monocytes (%) (Auto) 9.6 % (4.1-12.4) Eosinophils (%) (Auto) 2.6 % (0.4-6.7) Basophils (%) (Auto) 1.0 % (0.3-1.4) Nucleated RBC Relative Count (auto) 0.1 /100WBC Neutrophils # (Auto) 3.6 K/uL (2.0-7.4) Lymphocytes # (Auto) 2.8 K/uL (1.3-3.6) Monocytes # (Auto) 0.7 K/uL (0.3-1.0) Eosinophils # (Auto) 0.2 K/uL (0.0-0.5) Basophils # (Auto) 0.1 K/uL (0.0-0.1) Nucleated RBC Absolute Count (auto) 0.01 K/uL Prothrombin Time 13.3 seconds (12.0-14.4) Prothromb Time International Ratio 1.01 Activated Partial Thromboplast Time 32 seconds (23-35) Glomerular Filtration Rate Calc 54.2 Calcium Level 9.8 mg/dl (8.4-10.2) Magnesium Level 2.3 mg/dl (1.7-2.2) Total Bilirubin 0.5 mg/dl (0.2-1.3) Aspartate Amino Transf (AST/SGOT) 23 U/L (0-35) Alanine Aminotransferase (ALT/SGPT) 32 U/L (0-56) Alkaline Phosphatase 72 U/L (0-126) Total Protein 7.0 g/dl (6.3-8.2) Albumin 4.2 g/dl (3.5-5.0) Urine Color Yellow Urine Clarity Clear Urine pH 5.0 pH (4.8-9.5) Urine Specific [place] 1.011 Urine Protein Negative mg/dL (NEGATIVE) Urine Glucose (UA) Negative mg/dL (NEGATIVE) Urine Ketones Negative mg/dL (NEGATIVE) Urine Blood Negative (NEGATIVE) Urine Nitrite Negative (NEGATIVE) Urine Bilirubin Negative (NEGATIVE) Urine Urobilinogen Negative mg/dL (0.2-1.9) Urine Leukocyte Esterase Negative (NEGATIVE) Urine RBC <1 /HPF (0-2/HPF) Urine WBC 1 /HPF (0-5/HPF) Urine Squamous Epithelial Cells Few /LPF (NONE-FEW) Urine Bacteria Negative /HPF (NONE-FEW) Urine Mucus None /HPF (NONE-FEW) Coagulation Test 03/31/19 14:01 Prothrombin Time 13.3 seconds Prothromb Time International Ratio 1.01 Activated Partial Thromboplast Time 32 seconds Urinalysis Test 03/31/19 14:25 Urine Color Yellow Urine Clarity Clear Urine pH 5.0 pH (4.8-9.5) Urine Specific [place] 1.011 Urine Protein Negative mg/dL (NEGATIVE) Urine Glucose (UA) Negative mg/dL (NEGATIVE) Urine Ketones Negative mg/dL (NEGATIVE) Urine Blood Negative (NEGATIVE) Urine Nitrite Negative (NEGATIVE) Urine Bilirubin Negative (NEGATIVE) Urine Urobilinogen Negative mg/dL (0.2-1.9) Urine Leukocyte Esterase Negative (NEGATIVE) Urine RBC <1 /HPF (0-2/HPF) Urine WBC 1 /HPF (0-5/HPF) Urine Squamous Epithelial Cells Few /LPF (NONE-FEW) Urine Bacteria Negative /HPF (NONE-FEW) Urine Mucus None /HPF (NONE-FEW) EKG/Imaging EKG Interpretation 12 lead EKG: Time of EKG 1327. Rhythm: Normal sinus rhythm, ventricular rate 73 bpm. [place]: normal QRS: normal ST segments: No ST depression or elevation identified. Imaging PATIENT NAME: Jojo Hooper : 1945 MR: [id number] V: [id number] EXAM DATE: ORDERING PHYSICIAN: NILAY CRAIG TECHNOLOGIST: Location: [facility] [place] Patient: Jojo Hooper : 1945 Visit/Account:[id number] Date of Sevice: 03/31/2019 EXAMINATION: CT head without IV contrast HISTORY: Seizure. TECHNIQUE: Axial CT images of the head were obtained from the vertex to the skull base without IV contrast, with coronal and sagittal 2D reconstructed images. One of the following dose optimization techniques was utilized in the performance of this exam: Automated exposure control; adjustment of the mA and/or kV according to the patient's size; or use of an iterative reconstruction technique. Specific details can be referenced in the facility's radiology CT exam operational policy. COMPARISON: 03/29/2019. FINDINGS: Moderate diffuse parenchymal atrophy with stable patchy low attenuation in the deep white matter compatible with chronic small vessel ischemic change. Intracranial vascular calcifications. No CT evidence of intracranial hemorrhage, mass lesion, or acute infarct. No midline shift or extra-axial fluid collections. Carrillo-white differentiation is maintained. The calvarium is intact. The partially visualized paranasal sinuses and mastoid air cells are unopacified. There is incomplete osseous fusion of the posterior midline arch of C1, a developmental variant. IMPRESSION: 1. Stable exam. No CT evidence of acute intracranial pathology. 2. Moderate parenchymal atrophy with stable chronic small vessel ischemic change. Report Dictated By: Ceasar Conrad MD at 03/31/2019 3:31 PM Report E-Signed By: Ceasar Conrad MD at 03/31/2019 3:35 PM [id number] PATIENT NAME: Jojo Hooper : 1945 MR: [id number] V: [id number] EXAM DATE: [id number] ORDERING PHYSICIAN: NILAY CRAIG TECHNOLOGIST: Location: [facility] [place] Patient: Jojo Hooper : 1945 Visit/Account:[id number] Date of Sevice: 03/31/2019 Exam type: CHEST SINGLE AP History: seizure, recent subdural Comparison: 03/12/2019. Findings: Both lungs are well-expanded and clear. There is no focal infiltrate, pleural effusion or pneumothorax. Heart size is normal. Patient is rotated and the ascending thoracic aorta appears enlarged and potentially aneurysmal. The osseous structures are unremarkable. IMPRESSION: 1. No acute cardiopulmonary disease. 2. Patient is rotated and there is some prominence of the ascending thoracic aorta potentially an aneurysm. Finding could be evaluated with a CT scan as indicated. Report Dictated By: Lenin Padilla MD at 03/31/2019 2:27 PM Report E-Signed By: Lenin Padilla MD at 03/31/2019 2:30 PM WSN:[id number] ED Course/Re-evaluation Clinical Indication for ER IV: Hydration, IV Access ED Course The patient was in the room. A history and physical obtained. Differential diagnoses were considered. An IV was started. A CBC, CMP were obtained. UA was collected. A head CT and chest x-ray were obtained. The report on the chest x- ray saying there is prominence of the ascending thoracic aorta potentially an aneurysm, however when compared to previous x-rays and there is a similarity I do believe that the patient is just rotated more on the current chest x-ray. The CT of the brain was negative for any acute abnormalities. Laboratory studies were unremarkable. I did touch bases with Dr. Veloz and the neurologist at [facility], we did discuss the case as noted below. I did review the results with the patient, asked how she was doing, she did state "I am feeling great". I also asked if she was ready to go home she indicated that she was. I do believe that the bilateral arm activity that they saw today was likely the patient expressing her concern that they needed to get away or something else was bothering her I do not feel that this was seizure activity she was not postictal for EMS nor was she postictal upon arrival. There was no seizure activity in the ER she did have some arm flapping when the nurse went to put the pulse ox on as the patient was sleeping, she did stop ended open her eyes soon thereafter and was at her baseline. I did believe this was an attempt to stop the activity that she did not like. 03/31/2019 3:25:30 pm the patient has remained cooperative, no signs of seizure activity while in the emergency department. 03/31/2019 3:55:45 pm I did speak with Dr. Marin, the neurologist at [facility] regarding the patient's case, no interventions necessary at this time, she did recommend close observation also stated that if this were a seizure vomiting incorporated both the upper extremities, the patient's would be postictal as it is a global type of seizure. Decision to Disposition Date: Mar 31, 2019 Decision to Disposition Time: 16:00 Depart Departure Latest Vital Signs Vital Signs Date Time Temp Pulse Resp B/P (MAP) Pulse Ox O2 Delivery O2 Flow Rate FiO2 03/31/19 15:47 2.0 03/31/19 15:36 69 12 121/72 (88) 92 Room Air 03/31/19 13:25 97.6 Impression: Primary Impression: Alzheimer's dementia Additional Impression: Normal movement, sensation, and circulation of upper extremity Condition: Improved Disposition: HOME OR SELF-CARE Referrals: LEIGH ANN SHERWOOD MD (PCP) 1 Week Patient Instructions: Dementia (ED), Nonepileptic Seizures (ED) Additional Instructions: The CT scan of the brain did not show any concerning findings today, however continue to monitor for any other unusual activity. Typically with seizures, that incorporates both sides of the body, the patient will be postictal for a significant amount of time continue to monitor for any signs such as this. Continue taking the regular medications. Continue to offer plenty of fluids. Follow-up with her primary care provider within one week for reevaluation. Return to the ER for any concerns or worsening symptoms. Problem Qualifiers Primary Impression: Alzheimer's dementia Alzheimer's disease onset: unspecified onset Dementia behavioral d isturbance: without behavioral disturbance Qualified Codes: G30.9 - Alzheimer's disease, unspecified; F02.80 - Dementia in other diseases classified elsewhere without behavioral disturbance NILAY CRAIG P[employer] OPERATOR-BC Mar 31, 2019 13:52
[2019-03-31 14:17] LABS: PLATELET COUNT, AUTOMATED 246 K/uL (150-450)
--- NOTE | 2019-03-31 14:37 | EKG ---
FACILITY: [facility] PATIENT NAME: ELBA SOSA : [id number] MR: [id number] V: [id number] EXAM DATE: ORDERING PHYSICIAN: NILAY CRAIG TECHNOLOGIST: FABIOLA Test Reason : SEIZURE Blood Pressure : / mmHG Vent. Rate : 073 BPM Atrial Rate : 073 BPM P-R Int : 168 ms QRS Dur : 072 ms QT Int : 392 ms P-R-T Axes : 024 010 027 degrees QTc Int : 431 ms Sinus rhythm No acute appearing findings Some artifact in several leads - repeat if needed No previous ECGs available Confirmed by PETTY CHRISTIANSON ([id number]) on 03/31/2019 8:08:29 PM Referred By: Confirmed By:PETTY CHRISTIANSON
--- NOTE | 2019-03-31 14:39 | RADIOLOGY IMAGING REPORT ---
FACILITY: [facility] PATIENT NAME: Jojo Hooper : 1945 MR: [id number] V: [id number] EXAM DATE: ORDERING PHYSICIAN: NILAY CRAIG TECHNOLOGIST: Location: [facility] Patient: Jojo Hooper : 1945 Visit/Account:[id number] Date of Sevice: 03/31/2019 Exam type: CHEST SINGLE AP History: seizure, recent subdural Comparison: 03/12/2019. Findings: Both lungs are well-expanded and clear. There is no focal infiltrate, pleural effusion or pneumothora x. Heart size is normal. Patient is rotated and the ascending thoracic aorta appears enlarged and potent ially aneurysmal. The osseous structures are unremarkable. IMPRESSION: 1. No acute cardiopulmonary disease. 2. Patient is rotated and there is some prominence of the ascending thoracic aorta potentially an ane urysm. Finding could be evaluated with a CT scan as indicated. Report Dictated By: Lenin Padilla MD at 03/31/2019 2:27 PM Report E-Signed By: Lenin Padilla MD at 03/31/2019 2:30 PM WSN:[id number]
[2019-03-31 14:56] LABS: INR 1.01
[2019-03-31 15:36] VITALS: BP 121/72
--- NOTE | 2019-03-31 15:41 | RADIOLOGY IMAGING REPORT ---
FACILITY: PATIENT NAME: Jojo Hooper : 1945 MR: [id number] V: [id number] EXAM DATE: ORDERING PHYSICIAN: NILAY CRAIG TECHNOLOGIST: Location: [facility] - [place] Patient: Jojo Hooper : 1945 Visit/Account:[id number] Date of Sevice: 03/31/2019 EXAMINATION: CT head without IV contrast HISTORY: Seizure. TECHNIQUE: Axial CT images of the head were obtained from the vertex to the skull base without IV c ontrast, with coronal and sagittal 2D reconstructed images. One of the following dose optimization techniques was utilized in the performance of this exam: Autom ated exposure control; adjustment of the mA and/or kV according to the patient's size; or use of an i terative reconstruction technique. Specific details can be referenced in the facility's radiology C T exam operational policy. COMPARISON: 03/29/2019. FINDINGS: Moderate diffuse parenchymal atrophy with stable patchy low attenuation in the deep white matter comp atible with chronic small vessel ischemic change. Intracranial vascular calcifications. No CT evidence of intracranial hemorrhage, mass lesion, or acute infarct. No midline shift or extra-a xial fluid collections. Carrillo-white differentiation is maintained. The calvarium is intact. The partially visualized paranasal sinuses and mastoid air cells are unopaci fied. There is incomplete osseous fusion of the posterior midline arch of C1, a developmental variant . IMPRESSION: 1. Stable exam. No CT evidence of acute intracranial pathology. 2. Moderate parenchymal atrophy with stable chronic small vessel ischemic change. Report Dictated By: Ceasar Conrad MD at 03/31/2019 3:31 PM Report E-Signed By: Ceasar Conrad MD at 03/31/2019 3:35 PM WSN:[id number]
== END 2019-03-31 16:28 | disposition home or self-care (01) ==
LOC: ER 13:30
DX: G30.9 Alzheimer's disease, unspecified (principal); F02.80 Dementia in other diseases classified elsewhere, unspecified severity, without behavioral disturbance, psychotic disturbance, mood disturbance, and anxiety; E11.9 Type 2 diabetes mellitus without complications; I10 Essential (primary) hypertension; E03.9 Hypothyroidism, unspecified
CPT/HCPCS: 36415; 70450; 71045; 81001; 82040; 82247; 82310; 82374; 82435; 82565; 82947; 83735; 84075; 84132; 84155; 84295; 84450; 84460; 84520; 85025; 85610; 85730; 93005; 99284

== ENCOUNTER → 2019-03-31 | Outpatient (CLI) | payer MEDICARE, MEDICAID | LOC: AMB 13:05 | PROVIDERS: ATTEND Nurse Practitioner | DX: R56.9 Unspecified convulsions (principal) | CPT/HCPCS: A0425; A0427 ==